=== PATIENT | female | born 1990 | race African-American/Black ===

== ENCOUNTER 2017-02-27 12:48 | Emergency (ER) | payer OTHER ==
[2017-02-27 13:48] LABS: ASCORBIC ACID (UR NOT ORDER) NEG (NEG); BILIRUBIN, URINE NEGATIVE (NEG); KETONE, URINE NEGATIVE (NEG); LEUKOCYTE ESTERASE(NOT OR NEG (NEG); NITRITE (URINE) NEG (NEG); WBC (NOT ORDERED) (RFLEX) 2 (0-5)
== END 2017-02-27 14:21 | disposition home or self-care (01) ==
LOC: ER 12:48
PROVIDERS: Nurse Practitioner
DX: R51 Headache (principal); R05 Cough
CPT/HCPCS: 71020; 81001; 84703; 93005; 96372; 99284; J1885